=== PATIENT | male | born 1995 | race Caucasian/White ===

== ENCOUNTER 2025-04-30 07:44 | Inpatient (IN) | payer OTHER ==
[~2025-04-30] VITALS: Ht 177.8 cm; Wt 74.5 kg
[2025-04-30] MEDS: ONDANSETRON HCL 4 MG/2 ML VIAL IVP ONE (08:35)
[2025-04-30] MEDS: KETOROLAC TROMETHAMINE 30 MG/ML VIAL IVP ONE (08:36)
[2025-04-30 08:38] LABS: PLATELET COUNT (AUTO) 287 K/uL (150-450); RED BLOOD CELL COUNT(AUTO) 4.77 MIL/uL (4.50-5.90); RED CELL DISTRIBUTION WIDTH 14.4 % (11.5-14.5); WHITE BLOOD COUNT (AUTO) 5.9 K/uL (4.5-11.0)
[2025-04-30 08:47] LABS: CALCIUM, TOTAL 8.7 mg/dL (8.8-10.5); CREATININE 0.80 mg/dL (0.60-1.30); GLOMERULAR FILTR. RATE CALC > 60 mL/min (>60); GLUCOSE,RANDOM 106 mg/dL (70-110); SODIUM SERUM 140 mmol/L (136-145); UREA NITROGEN, BLOOD 14 mg/dL (7-18)
[2025-04-30 08:52] LABS: ASPARTATE AMINOTRANSFERASE 16 U/L (15-37); TOTAL PROTEIN, SERUM 7.2 g/dL (6.4-8.2)
[2025-04-30 09:08] LABS: ALCOHOL, BLOOD (SERUM) < 3 mg/dL (0-10)
[2025-04-30] MEDS ORDERED: MAGNESIUM HYDROXIDE SUSPENSION 30 ML UDCUP PO PRN (13:00)
[2025-04-30] MEDS: SODIUM CHLORIDE 0.9% 1,000 ML IV ONE (14:01)
[2025-04-30 14:13] LABS: PH,URINE DRUG SCREEN 6.5 (5.0-8.0)
[2025-04-30 14:20] LABS: AMPHET/METH SCREEN,URINE POSITIVE (NEGATIVE); BARBITURATE SCREEN, URINE NEGATIVE (NEGATIVE); CANNABINOID SCREEN,URINE NEGATIVE (NEGATIVE); COCAINE SCREEN,URINE NEGATIVE (NEGATIVE); METHADONE SCREEN, URINE NEGATIVE (NEGATIVE)
[2025-04-30 14:21] LABS: ALCOHOL, URINE DRUG SCREEN NEGATIVE (NEGATIVE)
[2025-04-30] MEDS: FAMOTIDINE 20 MG TABLET PO SCH (20:08)
[2025-04-30 21:42] VITALS: BP 114/74; PULSE 83; RESP 18; TEMP 98.2; O2SAT 100
[2025-04-30] MEDS: ACETAMINOPHEN 325 MG TABLET PO PRN (21:46)
[2025-04-30] MEDS: ZOLPIDEM TARTRATE 5 MG TABLET PO PRN (21:46)
[2025-04-30] MEDS ORDERED: INFLUENZA VIRUS VACCINE TVS (6MO+) 2025-26/PF 45 MCG/0.5 ML SYRINGE IM. ONE (23:45)
[2025-05-01] MEDS: ONDANSETRON HCL 4 MG/2 ML VIAL IVP PRN (02:29)
[2025-05-01] MEDS: LORazepam 2 MG/ML VIAL IVP PRN (02:29)
[2025-05-01 03:19] LABS: APPEARANCE,URINE CLEAR (CLEAR); GLUCOSE, URINE (UA) NEGATIVE (NEGATIVE); LEUKOCYTE ESTERASE ,URINE NEGATIVE (NEGATIVE); NITRATE,URINE NEGATIVE (NEGATIVE); OCCULT BLOOD,URINE NEGATIVE (NEGATIVE); SPECIFIC GRAVITIY, URINE 1.009 (1.003-1.030)
[2025-05-01 04:00] VITALS: BP 132/97; PULSE 84; RESP 20; TEMP 97.7; O2SAT 97
[2025-05-01 08:31] VITALS: BP 130/90; PULSE 93; RESP 18; TEMP 97.7; O2SAT 99
[2025-05-01] MEDS ORDERED: PROMETHAZINE HCL 25 MG TABLET PO PRN (09:45)
[2025-05-01] MEDS ORDERED: ACETAMINOPHEN 325 MG TABLET PO PRN (09:45)
[2025-05-01] MEDS ORDERED: MAG HYDROX/ALUMINUM HYD/SIMETH ES 30 ML SUSPENSION UDCUP PO PRN (09:45)
[2025-05-01] MEDS ORDERED: IBUPROFEN 600 MG TABLET PO PRN (09:45)
[2025-05-01] MEDS: KETOROLAC TROMETHAMINE 30 MG/ML VIAL IVP ONE (10:59)
[2025-05-01] MEDS: SODIUM CHLORIDE 0.45% 1,000 ML IV SCH (11:05)
[2025-05-01 12:05] VITALS: BP 104/62; PULSE 70
[2025-05-01 17:42] VITALS: BP 126/72; PULSE 72; RESP 18; TEMP 97.6; O2SAT 98
[2025-05-01 20:07] VITALS: BP 122/79; PULSE 86; RESP 18; TEMP 97.9; O2SAT 100
[2025-05-02 05:49] VITALS: BP 126/86; PULSE 86; RESP 18; TEMP 98.2; O2SAT 100
[2025-05-02 08:00] VITALS: BP 125/83; PULSE 80; RESP 18; TEMP 98.2; O2SAT 99
[2025-05-02] MEDS: BACLOFEN 10 MG TABLET PO PRN (08:58)
[2025-05-02] MEDS: LOPERAMIDE HCL 2 MG/15 ML SUSPENSION UDCUP PO PRN (09:42)
[2025-05-02] MEDS ORDERED: OXCA150T28 PO (13:45)
[2025-05-02] MEDS ORDERED: MIRT-146 PO (13:46)
[2025-05-02 20:17] VITALS: BP 112/78; PULSE 75; RESP 17; TEMP 98.4; O2SAT 100
[2025-05-02] MEDS: ZOLPIDEM TARTRATE 5 MG TABLET PO SCH (20:23)
[2025-05-02] MEDS: DICYCLOMINE HCL 10 MG CAPSULE PO PRN (20:28)
[2025-05-02] MEDS: MIRTAZAPINE 15 MG TABLET PO SCH (20:28)
[2025-05-02 22:30] VITALS: BP 121/72; PULSE 64
[2025-05-03 08:38] VITALS: BP 120/78; PULSE 68; RESP 18; TEMP 98.1; O2SAT 100
[2025-05-03] MEDS ORDERED: OXCA300T70 PO (11:45)
[2025-05-03 16:55] VITALS: BP 120/79; PULSE 77; RESP 18; TEMP 98.6; O2SAT 100
[2025-05-03 20:09] VITALS: BP 123/77; PULSE 63; RESP 18; TEMP 98.1; O2SAT 99
[2025-05-03] MEDS: MIRTAZAPINE 15 MG TABLET PO SCH (21:10)
[2025-05-04 04:10] VITALS: BP 122/78; PULSE 72; RESP 18; TEMP 98.1; O2SAT 100
[2025-05-04 08:00] VITALS: BP 118/79; PULSE 77; RESP 20; TEMP 98.2; O2SAT 99
[2025-05-04] MEDS ORDERED: ACET-2247 PO (10:12)
[2025-05-04] MEDS ORDERED: MAG30ORA11 PO (10:13)
[2025-05-04] MEDS ORDERED: MAGN-169 PO (10:14)
== END 2025-05-04 16:41 | DRG 897 ==
LOC: EMS 07:44 → EDH 12:26 → 6S 21:22
PROVIDERS: ADMIT Internal Medicine; ATTEND Internal Medicine
PROC: GZ58ZZZ Individual Psychotherapy, Cognitive-Behavioral (ICD-10-PCS; principal; 2025-05-02)
PROC: GZ56ZZZ Individual Psychotherapy, Supportive (ICD-10-PCS; 2025-05-02)
DX: F11.23 Opioid dependence with withdrawal (principal); F33.1 Major depressive disorder, recurrent, moderate; F15.23 Other stimulant dependence with withdrawal; F19.10 Other psychoactive substance abuse, uncomplicated; F41.9 Anxiety disorder, unspecified; G47.00 Insomnia, unspecified; G89.29 Other chronic pain; I10 Essential (primary) hypertension; Z79.899 Other long term (current) drug therapy
CPT/HCPCS: 74176; 80048; 80076; 80307; 81003; 85025; 90686; 99285; G0480; J1885; J2060; J2405